=== PATIENT | female | born 1990 | race Caucasian/White ===

== ENCOUNTER → 2021-06-24 | Outpatient (CLI) | payer OTHER ==
--- NOTE | 2021-06-24 13:03 | RAD ---
DIAGNOSTIC BILATERAL BREAST ULTRASOUND INDICATION: Left breast lump and bilateral pain. COMPARISON: None available FINDINGS: Ultrasound evaluation of the right breast and axilla demonstrates normal fibroglandular tissue includ ing at the 10:00 radial area of tenderness. No mass or cyst is identified. Ultrasound evaluation in the left retroareolar area of patient's palpable concern illustrates normal fibroglandular tissue. Additional imaging in the remainder of the left breast and axilla is unremarka ble. IMPRESSION: 1. No imaging evidence of malignancy. No ultrasound abnormalities corresponding to patient's concern s. ASSESSMENT: BI-RADS 1: Negative. RECOMMENDATION: Routine annual screening mammogram. Annual screening mammograms beginning at age 40. Patient may return for diagnostic evaluation sooner as needed for new symptoms. The facility will notify the patient of the results via mail. Patient information will be entered int o the mammography reminder system with a target recall date for the next mammogram. A reminder letter will be generated by the facility. Electronically signed by: Yoni Navarro MD (06/24/2021 1:01 PM) [id number]
== END ==
LOC: US 11:59
PROVIDERS: ATTEND Optometrist
DX: N63.0 Unspecified lump in unspecified breast (principal); N64.4 Mastodynia; Z80.3 Family history of malignant neoplasm of breast
CPT/HCPCS: 76641-50